=== PATIENT | female | born 1950 | race African-American/Black ===

== ENCOUNTER 2018-12-06 16:15 | Emergency (ER) | payer MEDICARE ==
[~2018-12-06] VITALS: Ht 167.6 cm; Wt 77.3 kg
[2018-12-06 16:16] VITALS: Ht 167.6 cm; Wt 77.3 kg
[2018-12-06] MEDS ORDERED: NORVASC10 MG PO ×2 (16:19→17:21)
[2018-12-06] MEDS ORDERED: HCTZ25 MG PO (16:20)
[2018-12-06] MEDS ORDERED: LOPRESSOR25 MG PO (16:20)
[2018-12-06] MEDS ORDERED: LIPITOR20 MG PO (16:21)
[2018-12-06] MEDS ORDERED: GLUCOPHAGE500 MG PO (16:21)
[2018-12-06] MEDS ORDERED: GLIMEPIRIDE2 MG PO (16:21)
[2018-12-06] MEDS ORDERED: TORADOL10 MG PO (16:42)
[2018-12-06 17:18] VITALS: BP 192/105
== END 2018-12-06 17:18 | disposition home or self-care (01) ==
LOC: D.ER 16:15
DX: M54.5 Low back pain (principal); R03.0 Elevated blood-pressure reading, without diagnosis of hypertension